=== PATIENT | female | born 1995 | race Two or more races ===

== ENCOUNTER 2017-09-19 15:13 | Emergency (ER) | payer SELFPAY ==
--- NOTE | 2017-09-19 16:53 | EDPHY ---
H & P Stated Complaint: tx sinus infection with augmentin not feeling better Time Seen by Provider: 09/19/17 16:51 HPI/ROS: HPI: This is a 21-year-old female who presents with Chief Complaint: tx sinus infection with Augmentin not feeling better Location: Body Quality: Aches Duration: 2-3 days Signs and Symptoms: + fever, + dry cough, + frontal aching headache with sinus pressure, + nasal congestion, + no neck stiffness, no sore throat, no vision changes, no abdominal pain, no nausea, no vomiting Timing: Sudden, constant Severity: Moderate Context: Patient has a history of sinus disease presents with complaints of not feeling better after starting antibiotics 48 hr ago of Augmentin. She reports that she started to have sinus pressure and nasal congestion prior to leaving [facility] and started Augmentin. Since that time she has developed subjective fever, dry cough, body aches and fatigue. LMP 2-3 weeks ago. She does not use a nasal spray. Drinking normally but her appetite is decreased. Took Tylenol approximately 4 hr prior to arrival. Modifying Factors: See above Comment: ROS: see HPI Constitutional: + fever, no chills, no weight loss Eyes: No blurred vision Respiratory: No shortness of breath, + cough Cardiovascular: No chest pain Gastrointestinal: No nausea, no vomiting, no diarrhea Genitourinary: No dysuria Extremities: No myalgias Neurologic: No weakness, no numbness Skin: No rashes Hematologic: No bruising, no bleeding MEDICAL/SURGICAL/SOCIAL HISTORY: Medical history: Sinus disease Surgical history: Denies Social history: Lives in [facility]. CONSTITUTIONAL: Extremely well-appearing [place] young adult female, awake and alert, no obvious distress HEENT: Atraumatic and normocephalic, PERRL, EOMI. Tympanic membranes clear. Nares pain: Pale mucosal edema; no rhinorrhea. Maxillary sinus tenderness bilaterally. Oropharynx clear, no exudate and moist pink mucosa. Airway patent. No lymphadenopathy. No meningismus. Cardiovascular: Normal S1/S2, mild tachycardia, regular rhythm, without murmur rub or gallop. PULMONARY/CHEST: Symmetrical and nontender. Clear to auscultation bilaterally. Good air movement. No accessory muscle usage. ABDOMEN: Soft, nondistended, nontender, no rebound, no guarding, no peritoneal signs, no masses or organomegaly. No CVAT. EXTREMITIES: 2/2 pulses, strength 5/5, no deformities, no clubbing, no cyanosis or edema. NEUROLOGICAL: no focal neuro deficits. GCS 15. SKIN: Warm and dry, no erythema. no rash. Good capillary refill. Source: Patient Exam Limitations: No limitations - Personal History LMP (Females 10-55): 22-28 Days Ago Current Tetanus/Diphtheria Vaccine: No - Medical/Surgical History Hx Asthma: No Hx Chronic Respiratory Disease: No Hx Diabetes: No Hx Cardiac Disease: No Hx Renal Disease: No Hx Cirrhosis: No Hx Alcoholism: No Hx HIV/AIDS: No Hx Splenectomy or Spleen Trauma: No Other PMH: denies - Social History Smoking Status: Never smoked Constitutional: Initial Vital Signs Temperature (C) 36.9 C 09/19/17 15:36 Heart Rate 102 H 09/19/17 15:36 Respiratory Rate 18 09/19/17 15:36 Blood Pressure 109/77 09/19/17 15:36 O2 Sat (%) 96 09/19/17 15:36 O2 Delivery Mode Room Air Allergies/Adverse Reactions: No Known Allergies Allergy (Unverified 09/19/17 15:35) Home Medications: Medication Instructions Recorded Augmentin 875 MG TAB (*) 09/19/17 BENADRYL 09/19/17 Fluticasone Nasal [Flonase Nasal 2 sprays NASAL DAILY #1 mdi 09/19/17 [place] (RX)] Oseltamivir Phosphate [Tamiflu 75 75 mg PO BID #10 cap 09/19/17 mg (*)] Medical Decision Making ED Course/Re-evaluation: 1 L normal saline, IV Toradol, influenza test ordered Heart rate 102 upon arrival will give IV fluids Advised patient to continue Augmentin No signs of meningitis/otitis media/dehydration/hypoxia/wheezing Influenza A positive; Tamiflu candidate; advised supportive care This patient was seen under the supervision of my secondary supervising physician. I evaluated care for this patient independently. Differential Diagnosis: Differential diagnosis includes but is not limited to sinus disease, upper respiratory infection, viral syndrome, influenza. - Data Points Laboratory Results: 09/19/17 17:16 Nasal Influenza A PCR Pending Nasal Influenza B PCR Pending Medications Given: Discontinued Medications Sodium Chloride (Ns) 1,000 mls @ 0 mls/hr IV EDNOW ONE; Wide Open PRN Reason: Protocol Stop: 09/19/17 17:07 Last Admin: 09/19/17 17:13 Dose: 1,000 mls Ketorolac Tromethamine (Toradol) 30 mg IVP EDNOW ONE Stop: 09/19/17 17:07 Last Admin: 09/19/17 17:13 Dose: 30 mg Departure - Departure Disposition: Home, Routine, Self-Care Clinical Impression: Sinus disease, Influenza A Condition: Good Instructions: Sinusitis (ED), Influenza (ED) Additional Instructions: Consume a minimum of 8-10 glasses of water or electrolyte fluid replacement drinks that include Gatorade, Powerade, Pedialyte. Eat a bland diet for the next 48 hours and then slowly advance as tolerated. Take Tylenol 650 mg every 4 hours and/or Ibuprofen 600 mg every 8 hours with food as needed for pain. Continue to take Augmentin for full 7 day course and Tamiflu twice a day for the next 5 days. Rest as much as possible until you are feeling better. Referrals: [facility],. [Clinic] - As per Instructions Stand Alone Forms: Airline Excuse Prescriptions: Fluticasone Nasal [Flonase Nasal [place] (RX)] 2 sprays NASAL DAILY #1 mdi Oseltamivir Phosphate [Tamiflu 75 mg (*)] 75 mg PO BID #10 cap
[2017-09-19] MEDS ORDERED: KETOROLAC 30 MG/1 ML SDV IVP ONE (17:06)
[2017-09-19] MEDS ORDERED: NS 1,000 ML IV ONE (17:06)
[2017-09-19 17:46] VITALS: BP 107/62; PULSE 81; RESP 16; TEMP 98.1; O2SAT 100
[2017-09-19] MEDS ORDERED: OSELTAMIVIR PHOSPHATE 75 MG CAP PO ONE (18:38)
== END 2017-09-19 18:43 | disposition home or self-care (01) ==
DX: J32.9 Chronic sinusitis, unspecified (principal); J10.1 Influenza due to other identified influenza virus with other respiratory manifestations
CPT/HCPCS: 96374; J1885